=== PATIENT | male | born 1945 | race Caucasian/White ===

== ENCOUNTER 2019-07-03 20:57 | Observation (INO) | payer OTHER ==
[2019-07-03 21:04] VITALS: BMI 26.2
--- NOTE | 2019-07-03 21:28 | PDOC ---
History of Present Illness - General Chief Complaint: Syncope/Near Syncope Stated Complaint: PASS OUT Time Seen by Provider: 07/03/19 21:27 - History of Present Illness Initial Comments: 07/04/19 00:24 The patient is a 74 year old male with a history BPH, HTN who presents for evaluation following a syncopal episode. The patient reports that we has been feeling lightheaded throughout the day today. He states that he was ambulating to the bathroom when he "passed out" for an unknown amount of time. He states that he experienced nausea and "sweating" just prior to passing out and was able to sit himself to the floor prior to the syncopal episode. He notes that he "passed out" for seconds or minutes but is unsure. He otherwise denies fevers, chills, SOB, chest pain, vomiting, abdominal pain, or changes with urination or bowel movements. Past History - Past Medical History Allergies/Adverse Reactions: Allergies Allergy/AdvReac Type Severity Reaction Status Date / Time No Known Drug Allergies Allergy Verified 07/03/19 22:10 Home Medications: Ambulatory Orders Aspirin [ASA -] 81 mg PO DAILY 08/08/13 Multivitamin [Multivitamins] 1 each PO DAILY 08/08/13 Amlodipine Besylate [Norvasc -] 5 mg PO DAILY 08/29/13 Ascorbate Calcium/Bioflavonoid [Suri-C 1,000 mg Tablet] 1 each PO DAILY Lycopene 10 mg PO DAILY 08/29/13 Finasteride [Proscar -] 5 mg PO DAILY 09/22/16 Cyanocobalamin [Vitamin B12 -] 1,000 mcg PO DAILY 07/03/19 Silodosin [Rapaflo] 4 mg PO DAILY 07/03/19 Anemia: No Asthma: No Cancer: No Cardiac Disorders: No CVA: No COPD: No CHF: No Dementia: No Diabetes: No GI Disorders: No Disorders: Yes (ENLARGED PROSTATE) HTN: Yes Hypercholesterolemia: No Liver Disease: No Seizures: No Thyroid Disease: No - Surgical History Abdominal Surgery: No Appendectomy: Yes Cardiac Surgery: No Cholecystectomy: No Lung Surgery: No Neurologic Surgery: No Orthopedic Surgery: No - Suicide/Smoking/Psychosocial Hx Smoking History: Never smoked Have you smoked in the past 12 months: No Hx Alcohol Use: Yes (wine) Drug/Substance Use Hx: No Substance Use Type: Alcohol Hx Substance Use Treatment: No Review of Systems - Review of Systems Comments:: 07/04/19 00:41 Constitutional: No fevers, chills, fatigue, malaise HEENT: No Rhinorrhea, nasal congestion, visual changes Cardiovascular: Syncope No chest pain, palpitations, lightheadedness Respiratory: No Cough, SOB, Hemoptysis, Gastrointestinal: No Abdominal pain, Nausea, Vomiting, Constipation, Diarrhea, Melena Genitourinary: No Dysuria, Frequency, Urgency, Hesitancy, Hematuria, Flank pain Musculoskeletal: No Myalgia, arthralgia Skin: No rashes, itching, bruising, pallor Neurologic: No Headache, Dizziness, Numbness, Weakness, or Tingling Psychiatric: No Hallucinations. No SI or HI *Physical Exam - Vital Signs Last Vital Signs Temp Pulse Resp BP Pulse Ox 98.2 F 94 H 18 110/66 95 07/03/19 21:00 07/03/19 21:00 07/03/19 21:00 07/03/19 21:00 07/03/19 21:00 - Physical Exam Comments: 07/04/19 00:43 General Appearance: Nourished. No Apparent Distress HEENT: EOMI, JEEVAN. No Pharyngeal Erythema, Tonsillar Exudate, Tonsillar Erythema Neck: No Cervical Lymphadenopathy Respiratory/Chest: Lungs Clear, Normal Breath Sounds. No Crackles, Rales, Rhonchi, Wheezing Cardiovascular: Regular Rhythm, Regular Rate. No Murmur, Gallops, Rubs Gastrointestinal/Abdominal: Normal Bowel Sounds, Soft. No Guarding, Rebound, Tenderness Musculoskeletal: No CVA Tenderness Extremity: Normal Capillary Refill Integumentary: Normal Color, Dry, Warm Neurologic: packaging inspector II-XII NML intact, Fully Oriented, Alert, Normal Mood/Affect, Normal Response, Motor Strength 5/5. Heart Score/ECG Review #1 ECG reviewed & interpreted by me at: 00:43 07/04/19 00:56 Normal Sinus Rhythm Left [place] Deviation No Acute ST Changes ED Treatment Course - LABORATORY CBC & Chemistry Diagram: 07/04/19 07:40 07/04/19 07:40 Medical Decision Making - Medical Decision Making 07/04/19 00:43 The patient is a 74 year old male with a history BPH, HTN who presents for evaluation following a syncopal episode. Given the patient's history and physical exam, we will obtain a cbc, cmp, troponin, head CT, chest plain film, EKG to evaluate further. We will continue to monitor and reassess while here in the ED. Given the patient's syncopal episode, he will likely require admission for further monitoring and management. 07/04/19 04:58 CBC, cmp, troponin are unremarkable. Head CT is unremarkable as preliminarily read by our taxation consultant radiologist. Chest plain film is unremarkable. The patient will require admission for further monitoring. We discussed the case with the admitting team who accepted the patient for admission. *DC/Admit/Observation/Transfer Diagnosis at time of Disposition: Syncope and collapse - Discharge Dispostion Condition at time of disposition: Improved Decision to Admit order: Yes - Referrals - Patient Instructions - Post Discharge Activity
[2019-07-03 22:10] LABS: BASO % 0.1 % (0-2.0); EOS % 0.1 % (0-4.5); MCH 33.2 pg (25.7-33.7); MCHC 34.6 g/dl (32.0-35.9); MEAN PLT VOLUME 7.9 fl (7.5-11.1); MONO % 4.9 % (3.8-10.2); NEUT % 91.9 % (42.8-82.8); PLATELET COUNT 181 K/MM3 (134-434); RBC 5.11 M/mm3 (4.00-5.60); RDW 13.7 % (11.9-15.9); WHITE BLOOD COUNT 8.3 K/mm3 (4.0-10.0)
[2019-07-03 22:29] LABS: URINE APPEARANCE CLOUDY; URINE BILIRUBIN NEGATIVE (NEGATIVE); URINE COLOR YELLOW; URINE GLUCOSE (UA) NEGATIVE (NEGATIVE); URINE KETONE NEGATIVE (NEGATIVE); URINE LEUK ESTERASE NEGATIVE (NEGATIVE); URINE NITRITE NEGATIVE (NEGATIVE); URINE PROTEIN NEGATIVE (NEGATIVE); URINE UROBILINOGEN 0.2 mg/dL (0.2-1.0)
[2019-07-03 22:46] LABS: ALBUMIN 3.5 g/dl (3.4-5.0); BILIRUBIN,TOTAL 0.8 mg/dL (0.2-1); BLOOD UREA NITROGEN 17.2 mg/dL (7-18); CALCIUM 8.5 mg/dL (8.5-10.1); CREATININE 1.1 mg/dL (0.55-1.3); POTASSIUM 4.3 mmol/L (3.5-5.1); TOT PROT 6.4 g/dl (6.4-8.2)
[2019-07-03 23:02] LABS: PLATELET ESTIMATE ADEQUATE
--- NOTE | 2019-07-04 00:38 | PDOC ---
Attending Attestation - Resident Resident Name: Bronson Colon - ED Attending Attestation I have performed the following: I have examined & evaluated the patient, The case was reviewed & discussed with the resident, I agree w/resident's findings & plan - HPI HPI: 07/04/19 00:24 see resident hpi - Physicial Exam PE: 07/04/19 00:24 agree with resident exam - Medical Decision Making 07/04/19 00:24 74 yo male s/p syncopal episode with preceding diaphoresis EKG unremarkable CXR shows no significant infiltrate, borderline cardiomegaly when compared to previous will admit to hospitalist team for syncope
--- NOTE | 2019-07-04 01:25 | PN ---
Teaching Attending Note ATTENDING PHYSICIAN STATEMENT I saw and evaluated the patient. I reviewed the resident's note and discussed the case with the resident. I agree with the resident's findings and plan as documented. Seen and examined; please see resident note for further historical information. Briefly, patient presents with syncope; he denies having prior symptoms and did not have any seizure-like activity. He is a patient of Dr. Kelly and states he had echo and carotid doppler done 3-4 months prior; no issues reported with study. Hemodynamically stable and afebrile. Positive orthostatics taken by medicine resident in ER. Tells me he is unsure of the echo results but he agrees that he does have a valve problem (unsure of what) and tells me that he has no planned procedures, etc. No progressive CHF sx, etc. VS, labs, imaging reviewed NAD, AAO, resting in bed NC AT EOMI PERRLA RRR s1/2 no mgr Lungs CTAB, w/ sym exp CN2-12 wnl, no fnd EKG reviewed Tele ordered CT head negative for acute findings; personally reviewed CXR personally reviewed ASSESSMENT AND PLAN: Patient presents with syncope; patient of Dr. Kelly with stated valvulopathy and +OSVS in the ER. # Syncope -Ddx suspicious for valvular vs. orthostatic given positive results. Will obtain OP records from [facility]; fall precautions, etc. Telemetry ordered. Hydrated. Repeat OSVS in the AM # Valvulopathy -Check echo results from OP Cardio # Hx BPH -Rapaflo and finasteride use noted as relates; no s/s obstruction. Is s/p TURP with elevated PSH (trended down earlier this year) # Hx HTN -Verify and continue home medications.
[2019-07-04] MEDS ORDERED: SODIUM CHLORIDE 1,000 ML IV SCH (02:15)
--- NOTE | 2019-07-04 02:29 | HP ---
CHIEF COMPLAINT: PCP: Dr. Rojas Form Tamping Machine Operator: Dr. Kelly HISTORY OF PRESENT ILLNESS: Patient is a 74 year old male with PMH of HTN and BPH who presents s/p unwitnessed fall. Pt reports that he has felt lightheaded and "off" all day. Around 7pm, after taking a nap, he stood up to go to the bathroom and then woke up sitting on the carpet. He does not remember falling or how long he was "out" but believes it was only several seconds. He remembers having urinary urgency and feeling nauseous prior to the fall but denies any dizziness, chest pain, palpitations, or SOB. Pt denies hitting his head. He had no pain after the fall and was able to stand himself up and walk back to the couch. He states that he was very sweaty after the fall and felt mildly anxious. Pt has never had these symptoms before and denies a history of falls. All symptoms have since resolve and he now feels well. He only ate breakfast today and did not drink very much water. Pt was not wearing his glasses when he fell. Pt sees Dr. Kelly bi-annually due to a "poor valve". Per pt, his last echo and carotid US were done 4-5 months ago and were unremarkable. ER course was notable for: (1) CT head: no acute pathology (2) EKG: NSR, no st elevations or ischemic changes (3) UA: neg Recent Travel: denies PAST MEDICAL HISTORY: HTN BPH PAST SURGICAL HISTORY: Hernia repair (40 years ago) Appendectomy as child Social History: Smoking: denies Alcohol: 3 beers a day (last drink was 24 hours ago), CIWA score: 2 Drugs: denies Family History: No significant family hx Allergies No Known Drug Allergies Allergy (Verified 07/03/19 22:10) HOME MEDICATIONS: Home Medications Medication Instructions Recorded Aspirin [ASA] 81 mg PO DAILY 08/08/13 Multivitamin [Multivitamins] 1 each PO DAILY 08/08/13 Amlodipine Besylate [Norvasc -] 5 mg PO DAILY 08/29/13 Ascorbate Calcium/Bioflavonoid 1 each PO DAILY 08/29/13 [Suri-C 1,000 mg Tablet] Lycopene 10 mg PO DAILY 08/29/13 Finasteride [Proscar -] 5 mg PO DAILY 09/22/16 Cyanocobalamin [Vitamin B12 -] 1,000 mcg PO DAILY 07/03/19 Silodosin [Rapaflo] 4 mg PO DAILY 07/03/19 REVIEW OF SYSTEMS CONSTITUTIONAL: diaphoresis Absent: fever, chills, generalized weakness, malaise, loss of appetite, weight change HEENT: Absent: rhinorrhea, nasal congestion, throat pain, throat swelling, difficulty swallowing, mouth swelling, ear pain, eye pain, visual changes CARDIOVASCULAR: syncope, lightheadedness Absent: chest pain, palpitations, irregular heart rate, peripheral edema RESPIRATORY: Absent: cough, shortness of breath, dyspnea with exertion, orthopnea, wheezing, stridor, hemoptysis GASTROINTESTINAL: Absent: abdominal pain, abdominal distension, nausea, vomiting, diarrhea, constipation, melena, hematochezia GENITOURINARY: urgency Absent: dysuria, frequency, hesitancy, hematuria, flank pain, genital pain MUSCULOSKELETAL: Absent: myalgia, arthralgia, joint swelling, back pain, neck pain SKIN: Absent: rash, itching, pallor HEMATOLOGIC/IMMUNOLOGIC: Absent: easy bleeding, easy bruising, lymphadenopathy, frequent infections ENDOCRINE: Absent: unexplained weight gain, unexplained weight loss, heat intolerance, cold intolerance NEUROLOGIC: lightheadedness Absent: headache, focal weakness or paresthesias, dizziness, unsteady gait, seizure, mental status changes, bladder or bowel incontinence PSYCHIATRIC: Absent: anxiety, depression, suicidal or homicidal ideation, hallucinations. PHYSICAL EXAMINATION Vital Signs - 24 hr 07/03/19 07/03/19 21:00 21:45 Temperature 98.2 F Pulse Rate 94 H Pulse Rate [ 77 Right Radial] Respiratory 18 Rate Blood Pressure 110/66 Blood Pressure 109/62 [Right Arm] O2 Sat by Pulse 97 95 Oximetry (%) GENERAL: Awake, alert, and fully oriented, in no acute distress. HEAD: Normal with no signs of trauma. EYES: Pupils equal, round and reactive to light, extraocular movements intact, sclera anicteric, conjunctiva clear. No lid lag. EARS, NOSE, THROAT: Ears normal, nares patent, oropharynx clear without exudates. Moist mucous membranes. NECK: Normal range of motion, supple without lymphadenopathy, JVD, or masses. LUNGS: Breath sounds equal, clear to auscultation bilaterally. No wheezes, and no crackles. No accessory muscle use. HEART: Regular rate and rhythm, normal S1 and S2, 2/6 systolic murmur. ABDOMEN: Soft, nontender, not distended, normoactive bowel sounds, no guarding, no rebound, no masses. No hepatomegaly or splenomegaly. MUSCULOSKELETAL: Normal range of motion at all joints. No bony deformities or tenderness. No CVA tenderness. UPPER EXTREMITIES: 2+ pulses, warm, well-perfused. No cyanosis. No clubbing. No peripheral edema. LOWER EXTREMITIES: 2+ pulses, warm, well-perfused. No calf tenderness. No peripheral edema. NEUROLOGICAL: Cranial nerves II-XII intact. Normal speech. Normal gait. PSYCHIATRIC: Cooperative. Good eye contact. Appropriate mood and affect. SKIN: Warm, dry, normal turgor, no rashes or lesions noted, normal capillary refill. Laboratory Results - last 24 hr CBC, BMP 07/03/19 22:00 07/03/19 22:00 Urine Test Results Urine Color Yellow Urine Appearance Cloudy Urine pH 6.0 (5.0-8.0) Ur Specific [place] 1.016 (1.010-1.035) Urine Protein Negative (NEGATIVE) Urine Glucose (UA) Negative (NEGATIVE) Urine Ketones Negative (NEGATIVE) Urine Blood Negative (NEGATIVE) Urine Nitrite Negative (NEGATIVE) Urine Bilirubin Negative (NEGATIVE) Ur Leukocyte Esterase Negative (NEGATIVE) ASSESSMENT/PLAN: Patient is a 4 year old male with PMH of HTN and BPH who presents s/p unwitnessed fall. #Syncope Likely 2/2 orthostatic hypotension. Positive orthostatics BP supine: 131/66 - -> standin/71 Also suspicious for cardiac/valvular contribution. Pt reports that he had echo and carotid US done by Dr. Kelly 4-5 months ago. Will obtain results in am EKG: NSR, no ischemic changes, neg troponin CT head: no acute intracranial pathology Will monitor on tele Will hydrate with IV NS @ 100ml/hr #HTN Pt takes norvasc 5mg daily at home Will hold BP meds due to orthostasis #BPH Pt takes finasteride and silodosin at home Will hold meds as they can cause lightheadedness and orthostasis #FEN IV NS @ 100ml/hr Sodium-controlled diet #DVT ppx Heparin SQ #Dispo Monitor on tele Visit type - Emergency Visit Emergency Visit: Yes ED Registration Date: 07/04/19 Care time: The patient presented to the Emergency Department on the above date and was hospitalized for further evaluation of their emergent condition. - New Patient This patient is new to me today: Yes Date on this admission: 07/04/19 - Critical Care Critical Care patient: No ATTENDING PHYSICIAN STATEMENT I saw and evaluated the patient. I reviewed the resident's note and discussed the case with the resident. I agree with the resident's findings and plan as documented. SUBJECTIVE: OBJECTIVE: ASSESSMENT AND PLAN:
[2019-07-04] MEDS ORDERED: HEPARIN NA (PORCINE) 5,000 UNITS/ML 1ML VIAL ONE (05:51)
[2019-07-04] MEDS: HEPARIN NA (PORCINE) 5,000 UNITS/ML 1ML VIAL SQ SCH ×2 (06:05→14:00)
[2019-07-04 09:05] LABS: BASO % 0.3 % (0-2.0); EOS % 0.2 % (0-4.5); HEMATOCRIT 45.8 % (35.4-49); HEMOGLOBIN 15.8 GM/dL (11.7-16.9); LYMPH % 10.2 % (8-40); MCH 33.2 pg (25.7-33.7); MCHC 34.5 g/dl (32.0-35.9); MEAN CELL VOLUME 96.2 fl (80-96); MEAN PLT VOLUME 8.3 fl (7.5-11.1); MONO % 7.3 % (3.8-10.2); PLATELET COUNT 170 K/MM3 (134-434); RBC 4.76 M/mm3 (4.00-5.60); RDW 13.8 % (11.9-15.9); WHITE BLOOD COUNT 5.9 K/mm3 (4.0-10.0)
[2019-07-04 09:23] LABS: ALBUMIN 3.2 g/dl (3.4-5.0); ALK PHOS 62 U/L (45-117); ANION GAP 7 MMOL/L (8-16); BILIRUBIN,TOTAL 0.9 mg/dL (0.2-1); BLOOD UREA NITROGEN 15.9 mg/dL (7-18); CALCIUM 8.1 mg/dL (8.5-10.1); CHLORIDE 106 mmol/L (98-107); CO2 28 mmol/L (21-32); CREATININE 1.1 mg/dL (0.55-1.3); GLUCOSE,RANDOM 92 mg/dL (74-106); POTASSIUM 4.1 mmol/L (3.5-5.1); SGOT/AST 16 U/L (15-37); SGPT/ALT 21 U/L (13-61); SODIUM 141 mmol/L (136-145); TOT PROT 5.9 g/dl (6.4-8.2)
[2019-07-04] MEDS ORDERED: ASPIRIN 81 MG CHEWABLE TABLETS PO SCH (10:00)
--- NOTE | 2019-07-04 11:15 | PN ---
Physical Exam: SUBJECTIVE: Patient seen and examined OBJECTIVE: Vital Signs Period Temp Pulse Resp BP Sys/Hendrickson Pulse Ox Last 24 Hr 98.2 F-98.5 F 77-94 18-18 109-123/62-66 95-98 GENERAL: The patient is awake, alert, and fully oriented, in no acute distress. HEAD: Normal with no signs of trauma. EYES: PERRL, extraocular movements intact, sclera anicteric, conjunctiva clear. No ptosis. ENT: Ears normal, nares patent, oropharynx clear without exudates, moist mucous membranes. NECK: Trachea midline, full range of motion, supple. LUNGS: Breath sounds equal, clear to auscultation bilaterally, no wheezes, no crackles, no accessory muscle use. HEART: Regular rate and rhythm, S1, S2 without murmur, rub or gallop. ABDOMEN: Soft, nontender, nondistended, normoactive bowel sounds, no guarding, no rebound, no hepatosplenomegaly, no masses. EXTREMITIES: 2+ pulses, warm, well-perfused, no edema. NEUROLOGICAL: Cranial nerves II through XII grossly intact. Normal speech, gait not observed. PSYCH: Normal mood, normal affect. SKIN: Warm, dry, normal turgor, no rashes or lesions noted Laboratory Results - last 24 hr 07/03/19 07/03/19 07/03/19 22:00 22:00 22:00 WBC 8.3 RBC 5.11 Hgb 17.0 H Hct 49.0 MCV 96.0 MCH 33.2 MCHC 34.6 RDW 13.7 Plt Count 181 MPV 7.9 Absolute Neuts (auto) 7.6 Total Counted 100 Neutrophils % 91.9 H Neutrophils % (Manual) 89.0 H Band Neutrophils % 4.0 Lymphocytes % 3.0 L Lymphocytes % (Manual) 2.0 L Monocytes % 4.9 Monocytes % (Manual) 5 Eosinophils % 0.1 Basophils % 0.1 Nucleated RBC % 0 Platelet Estimate Adequate Platelet Comment No clumping noted Sodium 138 Potassium 4.3 Chloride 102 Carbon Dioxide 26 Anion Gap 10 BUN 17.2 Creatinine 1.1 Est GFR (CKD-EPI)AfAm 75.18 Est GFR (CKD-EPI)NonAf 64.86 Random Glucose 118 H Calcium 8.5 Total Bilirubin 0.8 AST 17 ALT 24 Alkaline Phosphatase 68 Creatine Kinase 101 Troponin I < 0.02 Total Protein 6.4 Albumin 3.5 TSH Urine Color Urine Appearance Urine pH Ur Specific [place] Urine Protein Urine Glucose (UA) Urine Ketones Urine Blood Urine Nitrite Urine Bilirubin Urine Urobilinogen Ur Leukocyte Esterase 07/03/19 07/04/19 07/04/19 22:14 07:40 07:40 WBC 5.9 RBC 4.76 Hgb 15.8 Hct 45.8 MCV 96.2 H MCH 33.2 MCHC 34.5 RDW 13.8 Plt Count 170 MPV 8.3 Absolute Neuts (auto) 4.9 Total Counted Neutrophils % 82.0 Neutrophils % (Manual) Band Neutrophils % Lymphocytes % 10.2 D Lymphocytes % (Manual) Monocytes % 7.3 Monocytes % (Manual) Eosinophils % 0.2 D Basophils % 0.3 Nucleated RBC % 0 Platelet Estimate Platelet Comment Sodium 141 Potassium 4.1 Chloride 106 Carbon Dioxide 28 Anion Gap 7 L BUN 15.9 Creatinine 1.1 Est GFR (CKD-EPI)AfAm 75.18 Est GFR (CKD-EPI)NonAf 64.86 Random Glucose 92 Calcium 8.1 L Total Bilirubin 0.9 AST 16 ALT 21 Alkaline Phosphatase 62 Creatine Kinase Troponin I Total Protein 5.9 L Albumin 3.2 L TSH 0.77 Urine Color Yellow Urine Appearance Cloudy Urine pH 6.0 Ur Specific [place] 1.016 Urine Protein Negative Urine Glucose (UA) Negative Urine Ketones Negative Urine Blood Negative Urine Nitrite Negative Urine Bilirubin Negative Urine Urobilinogen 0.2 Ur Leukocyte Esterase Negative Active Medications Generic Name Dose Route Start Last Admin Trade Name Freq PRN Reason Stop Dose Admin Aspirin 81 mg 07/04/19 10:00 07/04/19 10:21 Asa - PO 81 mg DAILY [facility] Administration Heparin Sodium (Porcine) 5,000 unit 07/04/19 06:00 07/04/19 06:05 Heparin - SQ 5,000 unit TID LANETTE Administration Sodium Chloride 1,000 mls @ 100 mls/hr 07/04/19 02:15 07/04/19 02:27 Normal Saline - IV 100 mls/hr ASDIR LANETTE Administration ASSESSMENT/PLAN:
--- NOTE | 2019-07-04 11:37 | EKG ---
Test Reason : Blood Pressure : / mmHG Vent. Rate : 072 BPM Atrial Rate : 072 BPM P-R Int : 156 ms QRS Dur : 104 ms QT Int : 408 ms P-R-T Axes : 055 -63 052 degrees QTc Int : 446 ms NORMAL SINUS RHYTHM LEFT ANTERIOR FASCICULAR BLOCK POSSIBLE LATERAL INFARCT , AGE UNDETERMINED CANNOT RULE OUT INFERIOR INFARCT (MASKED BY FASCICULAR BLOCK?) , AGE UNDETERMINED ABNORMAL ECG NO PREVIOUS ECGS AVAILABLE Confirmed by CORRIE WISEMAN MD ([id number]) on 07/04/2019 11:37:15 AM Referred By: Confirmed By:CORRIE WISEMAN MD
[2019-07-04 12:27] VITALS: BP 111/68; PULSE 67; TEMP 97.2
--- NOTE | 2019-07-04 12:30 | CON.CARD ---
Consult Consult Specialty:: cardiology Reason for Consultation:: syncope - History of Present Illness Chief Complaint: Pt presently A&Ox3; no further nausea, dizziness. History of Present Illness: The patient is a 74 year old male with a history BPH, HTN who presents for evaluation following a syncopal episode. The patient reports that we has been feeling lightheaded throughout the day today. He states that he was ambulating to the bathroom when he "passed out" for an unknown amount of time. He states that he experienced nausea and "sweating" just prior to passing out and was able to sit himself to the floor prior to the syncopal episode. He notes that he "passed out" for seconds or minutes but is unsure. He otherwise denies fevers, chills, SOB, chest pain, vomiting, abdominal pain, or changes with urination or bowel movements. - History Source History Provided By: Patient, Medical Record Limitations to Obtaining History: No Limitations - Past Medical History Cardio/Vascular: Yes: HTN Pulmonary: No: Asthma - Alcohol/Substance Use Hx Alcohol Use: Yes (wine) - Smoking History Smoking history: Never smoked Have you smoked in the past 12 months: No Home Medications - Allergies Allergies/Adverse Reactions: Allergies Allergy/AdvReac Type Severity Reaction Status Date / Time No Known Drug Allergies Allergy Verified 07/03/19 22:10 - Home Medications Home Medications: Ambulatory Orders Aspirin [ASA] 81 mg PO DAILY 08/08/13 Multivitamin [Multivitamins] 1 each PO DAILY 08/08/13 Amlodipine Besylate [Norvasc -] 5 mg PO DAILY 08/29/13 Ascorbate Calcium/Bioflavonoid [Suri-C 1,000 mg Tablet] 1 each PO DAILY Lycopene 10 mg PO DAILY 08/29/13 Finasteride [Proscar -] 5 mg PO DAILY 09/22/16 Cyanocobalamin [Vitamin B12 -] 1,000 mcg PO DAILY 07/03/19 Silodosin [Rapaflo] 4 mg PO DAILY 07/03/19 Family Disease History - Family Disease History Family Disease History: Other: Brother ( a few years ago of leukemia) Review of Systems - Review of Systems Constitutional: reports: Fever (felt he had a fever yesterday, followed by nausea and vomiting) Eyes: reports: No Symptoms HENT: reports: No Symptoms Neck: reports: No Symptoms Cardiovascular: reports: No Symptoms Respiratory: reports: No Symptoms Gastrointestinal: reports: No Symptoms Genitourinary: reports: No Symptoms Breasts: reports: No Symptoms Reported Musculoskeletal: reports: No Symptoms Integumentary: reports: No Symptoms Neurological: reports: No Symptoms Endocrine: reports: No Symptoms Hematology/Lymphatic: reports: No Symptoms Psychiatric: reports: No Symptoms - Risk Factors Known Risk Factors: Yes: Age, Gender, Hypertension. No: Smoking Vital Signs: Vital Signs Temperature 97.2 F L 07/04/19 12:27 Pulse Rate 67 07/04/19 12:27 Respiratory Rate 18 07/04/19 12:27 Blood Pressure 111/68 07/04/19 12:27 O2 Sat by Pulse Oximetry (%) 95 07/04/19 12:27 Constitutional: Yes: Well Nourished Eyes: Yes: WNL HENT: Yes: WNL Neck: Yes: WNL Respiratory: Yes: WNL Gastrointestinal: Yes: Soft Renal/: No: Anuria Cardiovascular: Yes: Regular Rate and Rhythm JVD: No Carotid Bruit: No PMI: Non-Displaced Heart Sounds: Yes: S1, S2 Musculoskeletal: Yes: WNL Extremities: Yes: WNL Edema: No Peripheral Pulses WNL: Yes Integumentary: Yes: WNL Neurological: Yes: WNL ...Motor Strength: WNL Psychiatric: Yes: WNL - Other Data Labs, Other Data: CBC, BMP 07/04/19 07:40 07/04/19 07:40 Troponin, BNP 07/03/19 22:00 Troponin I < 0.02 Troponin, BNP 07/03/19 22:00 Troponin I < 0.02 Abnormal Lab Results 07/03/19 07/03/19 07/04/19 22:00 22:00 07:40 Hgb 17.0 H MCV 96.2 H Neutrophils % 91.9 H Neutrophils % (Manual) 89.0 H Lymphocytes % 3.0 L Lymphocytes % (Manual) 2.0 L Anion Gap Random Glucose 118 H Calcium Total Protein Albumin 07/04/19 07:40 Hgb MCV Neutrophils % Neutrophils % (Manual) Lymphocytes % Lymphocytes % (Manual) Anion Gap 7 L Random Glucose Calcium 8.1 L Total Protein 5.9 L Albumin 3.2 L Ejection Fraction %: LVEF > or = 40 % Imaging - Results Chest X-ray: Image Reviewed EKG: Image Reviewed Problem List - Problems (1) HTN (hypertension) Assessment/Plan: On amlodipine. Pt says he did not accidentally take a doulbe dose of the medicatrion prior to the syncopal episode. 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 ECHO 12/2018: normal LVEF and wall motion; mild AR. Plan Hydration. Orthostatic vital signs. Pt was scheduled for stress test 01/2019, but cancelled. Will have stress treadmill test done now; if no significant findings, pt may be followed up as outpatient from cardiac standpoint. Code(s): R55 - SYNCOPE AND COLLAPSE
[2019-07-04 13:52] LABS: CHOLESTEROL 165 mg/dL (50-200); HDL CHOLESTEROL 53 mg/dL (40-60); TRIGLYCERIDES 48 mg/dL (0-150)
--- NOTE | 2019-07-04 15:12 | TRE ---
Protocol Name : JENNIFER Max Work Load (METS*10) : 79 Time In Exercise Phase : 00:06:38 Max. Systolic BP : 168 mmHg Max Diastolic BP : 80 mmHg Max Heart Rate : 136 BPM Max Predicted Heart Rate : 144 BPM Attending Physician : IVONE Reason For Termination : Target Heart Rate Achieved Reason for Test : Syncope Stress Protocol : JENNIFER Rest HR : 82 BPM PeakEx METs : 7.9 METS Recovery ECG Response (OLD) : Diagnosis : Baseline sinus rhythm. No ischemic ecg changes or arrhythmias with exercise. Occasional PVCs. Normal bp and hr response to exercise. No chest pain or dizziness with exercise. Normal exercise stress ecg. Confirmed by CORRIE WISEMAN MD ([id number]) on 07/04/2019 3:11:39 PM
--- NOTE | 2019-07-04 16:59 | EKG ---
Test Reason : Blood Pressure : / mmHG Vent. Rate : 079 BPM Atrial Rate : 079 BPM P-R Int : 150 ms QRS Dur : 102 ms QT Int : 378 ms P-R-T Axes : 063 -65 040 degrees QTc Int : 433 ms NORMAL SINUS RHYTHM POSSIBLE LEFT ATRIAL ENLARGEMENT LEFT AXIS DEVIATION POSSIBLE LATERAL INFARCT , AGE UNDETERMINED INFERIOR INFARCT , AGE UNDETERMINED ABNORMAL ECG NO PREVIOUS ECGS AVAILABLE Confirmed by CORRIE WISEMAN MD ([id number]) on 07/04/2019 4:59:12 PM Referred By: Confirmed By:CORRIE WISEMAN MD
--- NOTE | 2019-07-04 17:21 | DS ---
Physical Exam: SUBJECTIVE: Patient seen and examined. He has no complaints. He denies chest pain, palpitations, dizziness. OBJECTIVE: Vital Signs Period Temp Pulse Resp BP Sys/Hendrickson Pulse Ox Last 24 Hr 97.2 F-98.5 F 67-94 18-18 109-123/62-68 95-98 PHYSICAL EXAM GENERAL: The patient is awake, alert, and fully oriented, in no acute distress. LUNGS: Breath sounds equal, clear to auscultation bilaterally, no wheezes, no crackles, no accessory muscle use. HEART: Regular rate and rhythm, S1, S2 without murmur, rub or gallop. ABDOMEN: Soft, nontender, nondistended, normoactive bowel sounds, no guarding, no rebound, no hepatosplenomegaly, no masses. EXTREMITIES: 2+ pulses, warm, well-perfused, no edema. LABS Laboratory Results - last 24 hr 07/03/19 07/03/19 07/03/19 22:00 22:00 22:00 WBC 8.3 RBC 5.11 Hgb 17.0 H Hct 49.0 MCV 96.0 MCH 33.2 MCHC 34.6 RDW 13.7 Plt Count 181 MPV 7.9 Absolute Neuts (auto) 7.6 Total Counted 100 Neutrophils % 91.9 H Neutrophils % (Manual) 89.0 H Band Neutrophils % 4.0 Lymphocytes % 3.0 L Lymphocytes % (Manual) 2.0 L Monocytes % 4.9 Monocytes % (Manual) 5 Eosinophils % 0.1 Basophils % 0.1 Nucleated RBC % 0 Platelet Estimate Adequate Platelet Comment No clumping noted Sodium 138 Potassium 4.3 Chloride 102 Carbon Dioxide 26 Anion Gap 10 BUN 17.2 Creatinine 1.1 Est GFR (CKD-EPI)AfAm 75.18 Est GFR (CKD-EPI)NonAf 64.86 Random Glucose 118 H Calcium 8.5 Total Bilirubin 0.8 AST 17 ALT 24 Alkaline Phosphatase 68 Creatine Kinase 101 Troponin I < 0.02 Total Protein 6.4 Albumin 3.5 Triglycerides Cholesterol Total LDL Cholesterol HDL Cholesterol TSH Urine Color Urine Appearance Urine pH Ur Specific Dickinson Urine Protein Urine Glucose (UA) Urine Ketones Urine Blood Urine Nitrite Urine Bilirubin Urine Urobilinogen Ur Leukocyte Esterase 07/03/19 07/04/19 07/04/19 22:14 07:40 07:40 WBC 5.9 RBC 4.76 Hgb 15.8 Hct 45.8 MCV 96.2 H MCH 33.2 MCHC 34.5 RDW 13.8 Plt Count 170 MPV 8.3 Absolute Neuts (auto) 4.9 Total Counted Neutrophils % 82.0 Neutrophils % (Manual) Band Neutrophils % Lymphocytes % 10.2 D Lymphocytes % (Manual) Monocytes % 7.3 Monocytes % (Manual) Eosinophils % 0.2 D Basophils % 0.3 Nucleated RBC % 0 Platelet Estimate Platelet Comment Sodium 141 Potassium 4.1 Chloride 106 Carbon Dioxide 28 Anion Gap 7 L BUN 15.9 Creatinine 1.1 Est GFR (CKD-EPI)AfAm 75.18 Est GFR (CKD-EPI)NonAf 64.86 Random Glucose 92 Calcium 8.1 L Total Bilirubin 0.9 AST 16 ALT 21 Alkaline Phosphatase 62 Creatine Kinase 97 Troponin I < 0.02 Total Protein 5.9 L Albumin 3.2 L Triglycerides 48 Cholesterol 165 Total LDL Cholesterol 104 H HDL Cholesterol 53 TSH 0.77 Urine Color Yellow Urine Appearance Cloudy Urine pH 6.0 Ur Specific Dickinson 1.016 Urine Protein Negative Urine Glucose (UA) Negative Urine Ketones Negative Urine Blood Negative Urine Nitrite Negative Urine Bilirubin Negative Urine Urobilinogen 0.2 Ur Leukocyte Esterase Negative HOSPITAL COURSE: Date of Admission:07/04/19 Date of Discharge: 07/04/19 Discharge Summary Reason For Visit: SYNCOPE AND COLLAPSE Current Active Problems Orthostatic hypotension (Acute) BPH (benign prostatic hyperplasia) (Chronic) Syncope and collapse (Acute) HTN (hypertension) (Chronic) Condition: Improved - Instructions Diet, Activity, Other Instructions: You came to the [facility] on July 03, 2019 after you passed out in the bathroom at home. You were found to have a significant drop in your blood pressure when you stood up from sitting which is the likely cause of you passing out. You were admitted and treated with intravenous fluids. Norvasc, Proscar, and Rapaflo were held. You improved. You were seen by a cigar head stringer Dr. Sarmiento and had a normal exercise stress test. You are being discharged home on July 04. You may resume all your medications, your usual diet, and your usual activity. Please schedule appointments to see your PCP Dr. Rojas and your cigar head stringer Dr. Kelly next week. Please call Dr. Rojas or return to the ER if you have any dizziness, chest pain, palpitations. Disposition: HOME - Home Medications Comprehensive Discharge Medication List: Ambulatory Orders Aspirin [ASA -] 81 mg PO DAILY 08/08/13 Multivitamin [Multivitamins] 1 each PO DAILY 08/08/13 Amlodipine Besylate [Norvasc -] 5 mg PO DAILY 08/29/13 Ascorbate Calcium/Bioflavonoid [Suri-C 1,000 mg Tablet] 1 each PO DAILY Lycopene 10 mg PO DAILY 08/29/13 Finasteride [Proscar -] 5 mg PO DAILY 09/22/16 Cyanocobalamin [Vitamin B12 -] 1,000 mcg PO DAILY 07/03/19 Silodosin [Rapaflo] 4 mg PO DAILY 07/03/19 This patient is new to me today: Yes Date on this admission: 07/04/19 Emergency Visit: Yes ED Registration Date: 07/04/19 Care time: The patient presented to the Emergency Department on the above date and was hospitalized for further evaluation of their emergent condition. Critical Care patient: No - Discharge Referral Referred to [facility] Med [facility] No
== END 2019-07-04 17:45 | disposition home or self-care (01) ==
LOC: JER 20:57 → JERBED 07-04 00:50
PROVIDERS: ADMIT Internal Medicine; ATTEND Internal Medicine
PROC: 3E0337Z Introduction of Electrolytic and Water Balance Substance into Peripheral Vein, Percutaneous Approach (ICD-10-PCS; principal; 2019-07-04)
PROC: 3E013GC Introduction of Other Therapeutic Substance into Subcutaneous Tissue, Percutaneous Approach (ICD-10-PCS; 2019-07-04)
DX: R55 Syncope and collapse (principal); I95.1 Orthostatic hypotension; I10 Essential (primary) hypertension; N40.0 Benign prostatic hyperplasia without lower urinary tract symptoms; I38 Endocarditis, valve unspecified
CPT/HCPCS: 36415; 70450-TC; 71045-TC-FY; 80053; 80061; 81003; 82550; 83721; 84443; 84484; 85025; 93005; 93010; 93017; 93018; 96372; 99284-25; G0378; J1644; J7030

== ENCOUNTER 2022-05-17 04:16 | Day surgery (SDC) | payer OTHER ==
[2022-05-12 08:41] VITALS: BMI 24.3
[2022-05-17] MEDS ORDERED: PROPOFOL 20 ML ONE (07:20)
[2022-05-17] MEDS ORDERED: SUCCINYLCHOLINE CHLORIDE 200 MG/10 ML SYRINGE ONE (07:20)
[2022-05-17] MEDS ORDERED: MIDAZOLAM HCL 2 MG/2 ML SINGLE DOSE VIAL ONE (07:20)
[2022-05-17] MEDS ORDERED: ceFAZolin SODIUM 1 GM VIAL IVPB ONE (07:59)
[2022-05-17] MEDS ORDERED: ceFAZolin SODIUM 1 GM VIAL ONE (07:59)
[2022-05-17] MEDS ORDERED: oxyCODONE HCL 5 MG TABLET PO PRN (08:47)
[2022-05-17] MEDS ORDERED: DEXTROSE 5%-0.45% SALINE 1,000 ML IV SCH (09:00)
[2022-05-17] MEDS ORDERED: ONDANSETRON 4 MG/2 ML VIAL IVPUSH PRN (09:48)
[2022-05-17] MEDS ORDERED: LACTATED RINGERS SOLUTION 1,000 ML IV SCH (10:00)
[2022-05-17 14:13] VITALS: TEMP 97.5
[2022-05-17 17:34] VITALS: BP 118/68; PULSE 78
== END 2022-05-17 16:15 | disposition home or self-care (01) ==
LOC: JASU-SURG 04:16 → JASUSAT 04:16
PROVIDERS: ATTEND Urology
PROC: 0V508ZZ Destruction of Prostate, Via Natural or Artificial Opening Endoscopic (ICD-10-PCS; principal; 2022-05-17 07:30)
DX: N40.1 Benign prostatic hyperplasia with lower urinary tract symptoms (principal)
CPT/HCPCS: 88305-TC; 94760